=== PATIENT | male | born 1955 | race African-American/Black ===

== ENCOUNTER → 2017-02-10 | Outpatient (CLI) | payer OTHER ==
--- NOTE | 2017-02-10 15:47 | RAD ---
Ultrasound venous Doppler Indication:RT LEG PAIN Technique: Grayscale, color Doppler and spectral waveform ultrasound images of the right lower extremity deep veins. Comparison: None Findings: The interrogated lower extremity veins are compressible and demonstrate evidence of blood flow with normal respiratory variation and response to augmentation. Impression: No sonographic evidence of acute DVT of the interrogated right lower extremity deep veins.
== END | disposition home or self-care (01) ==
LOC: US 10:49
PROVIDERS: ATTEND Family Medicine
DX: M79.604 Pain in right leg (principal)
CPT/HCPCS: 93971

== ENCOUNTER → 2018-11-24 | Outpatient (CLI) | payer MEDICAID ==
--- NOTE | 2018-11-24 12:20 | RAD ---
Bilateral lower extremity arterial ultrasound History: Claudication, smoker for many years, pain for over a year Findings: Multiple grayscale, color, and duplex spectral analysis sonographic images were acquired of the lower extremity arteries bilaterally. There are no previous similar exams. Proximal through mid right superficial femoral artery is not visualized. Left anterior tibial and dorsalis pedis arteries are not visualized. There is diffuse plaque bilaterally, also some areas of collateral vessels. There is increased velocity of the right profunda femoris artery, also increasing velocity between the proximal and mid left superficial femoral artery. There are monophasic waveforms on the right of the distal right superficial femoral artery and beyond, also of the left of the left calf vessels. Velocities in cm/sec: RIGHT Common femoral artery 100 Profunda femoris artery 303 Proximal SFA not seen Mid SFA not seen Distal SFA 32 Popliteal artery 21 Posterior tibial artery 30 proximally and 31 distally Peroneal artery 25 Anterior tibial artery 23 Dorsalis pedis artery 74 LEFT: Common femoral artery 91 Profunda femoris artery 129 Proximal SFA 62 Mid SFA 193 Distal SFA 81 Popliteal artery 76 Posterior tibial artery 66 proximally and 83 distally Peroneal artery 51 Anterior tibial artery not seen Dorsalis pedis artery not seen Impression: 1. There is segmental occlusion of the proximal and mid right superficial femoral artery, also apparently occluded left anterior tibial and dorsalis pedis arteries. There are monophasic waveforms on the right of the distal right superficial femoral artery and beyond, also of the left of the left calf vessels. 2. There is stenosis between the proximal and mid left superficial femoral artery. There is stenosis of the proximal right profunda femoris artery. Ankle brachial indices: Right JOHN was 0.4, left 0.98 IMPRESSION: 1. Right JOHN corresponds with severe arterial disease. Left JOHN is considered within normal limits. Electronically signed by: Cirilo Robertson MD (11/24/2018 12:17 PM) [id number]
== END | disposition home or self-care (01) ==
LOC: US 07:15
PROVIDERS: ATTEND Family Medicine
DX: I70.203 Unspecified atherosclerosis of native arteries of extremities, bilateral legs (principal); I77.1 Stricture of artery; F17.200 Nicotine dependence, unspecified, uncomplicated
CPT/HCPCS: 93922; 93925

== ENCOUNTER 2019-01-23 07:04 | Observation (INO) | payer MEDICAID ==
[2019-01-23] VITALS (15 sets, daily range): BP systolic 113–187; BP diastolic 54–95
[~2019-01-23] VITALS: Ht 182.9 cm; Wt 84.9 kg
--- NOTE | 2019-01-23 03:05 | NUR ---
PT REFUSED 3AM VS, WILL CONT TO MONITOR PT SAFETY AND STATUS. PMRN
[2019-01-23] MEDS ORDERED: METO50TA6 PO (07:32)
[2019-01-23] MEDS ORDERED: PHEN1PAC6 PO (07:32)
[2019-01-23] MEDS ORDERED: ASPI81TA50 PO (07:32)
[2019-01-23] MEDS ORDERED: ATOR20TA58 PO (07:32)
[2019-01-23 07:39] LABS: HEMATOCRIT 35.7 % (39.0-53.0); HEMOGLOBIN 12.1 g/dL (13.0-17.5); RED BLOOD COUNT 3.92 x10^6/uL (4.30-5.70); RED CELL DISTRIBUTION WIDTH 14.5 % (11.5-14.5); WHITE BLOOD COUNT 6.1 x10^3/uL (4.0-11.0)
[2019-01-23] MEDS ORDERED: LIDOCAINE 1% Multi-Dose 20 ML VIAL. ONE (07:44)
[2019-01-23] MEDS ORDERED: IODIXANOL 320 MG/ML 100 ML VIAL. ONE (07:44)
[2019-01-23 07:48] LABS: PROTHROMBIN TIME PATIENT 12.8 SEC (11.7-14.0)
[2019-01-23 07:50] LABS: CREATININE 1.3 mg/dL (0.7-1.3); GFR 67.5; POTASSIUM 4.2 mmol/L (3.5-5.1)
[2019-01-23] MEDS ORDERED: fentaNYL PF VIAL 250 MCG/5 ML VIAL ONE (08:17)
[2019-01-23] MEDS ORDERED: HEPARIN for IV BOLUS 10,000 UNIT/10 ML VIAL. ONE (08:17)
[2019-01-23] MEDS ORDERED: MIDAZOLAM HCL/PF 5 MG/5 ML VIAL. ONE (08:17)
[2019-01-23] MEDS ORDERED: LIDOCAINE 1% Multi-Dose 20 ML VIAL. INJ ONE (08:45)
[2019-01-23] MEDS ORDERED: MIDAZOLAM HCL/PF 5 MG/5 ML VIAL. IV ONE (08:45)
[2019-01-23] MEDS ORDERED: fentaNYL PF VIAL 250 MCG/5 ML VIAL IV ONE (08:45)
[2019-01-23] MEDS ORDERED: HEPARIN for IV BOLUS 10,000 UNIT/10 ML VIAL. IV ONE (09:15)
[2019-01-23] MEDS ORDERED: CLOPIDOGREL BISULFATE 75 MG TABLET ONE (10:26)
[2019-01-23] MEDS ORDERED: IODIXANOL 320 MG/ML 100 ML VIAL. IART ONE (10:30)
[2019-01-23] MEDS ORDERED: ASPIRIN 325 MG TABLET PO ONE (10:30)
[2019-01-23] MEDS ORDERED: CLOPIDOGREL BISULFATE 75 MG TABLET PO ONE (10:30)
[2019-01-23] MEDS: IV NORMAL SALINE 1000ML BAG 1,000 ML IV SCH ×2 (10:30→17:52)
[2019-01-23] MEDS ORDERED: IV 1/2 NORMAL SALINE 1,000 ML IV SCH (10:36)
--- NOTE | 2019-01-23 10:36 | PDOC ---
MODERATE SEDATION ASSESSMENT RISKS/ALTERNATIVES Risks/Alternatives Risks and alternatives of this type of sedation and procedure discussed with: RISK/ALTERNATIVES: Patient H & P ON CHART H & P H & P on chart and reviewed for co-morbid conditions and appropriate labs. H&P ON CHART: Yes STATUS PREG STATUS ASSESSED: N/A MEDS/ALLERGIES REVIEWED Meds/Allergies Reviewed Medications and Allergies including time and route of recently administered narcotics and sedatives. MEDS/ALLERGIES REVIEWED: Yes ASA RATING ASA RATING: II AIRWAY ASSESSMENT Airway Assessment Airway patency, oral function limitations, presence of caps, crowns, dentures, partials, and ability to extend neck assessed. AIRWAY ASSESSMENT: Yes MALLAMPATI SCORE MALLAMPATI SCORE: II PRE-SEDATION ASSESSMENT PRE-SEDATION ASSESSMENT: Yes OLEG MATA MD Jan 23, 2019 10:36
[2019-01-23] MEDS ORDERED: MAGNESIUM HYDROXIDE 2,400 MG/30 ML ORAL.SUSP. PO PRN (10:45)
[2019-01-23] MEDS ORDERED: ACETAMINOPHEN 325 MG TABLET. PO PRN (10:45)
[2019-01-23] MEDS ORDERED: ATROPINE 0.5 MG/5 ML DISP.SYRINGE. IV PRN (10:45)
[2019-01-23] MEDS ORDERED: BISACODYL 10 MG SUPP.RECT. PR PRN (10:45)
[2019-01-23] MEDS ORDERED: LACTULOSE 20 GM/30 ML SOLUTION. PO PRN (10:45)
[2019-01-23] MEDS ORDERED: fentaNYL PF VIAL 100 MCG/2 ML VIAL IV ONE (10:45)
[2019-01-23] MEDS ORDERED: NITROGLYCERIN SUBLINGUAL 0.4 MG BOTTLE OF 25. SL PRN (10:45)
--- NOTE | 2019-01-23 11:05 | CARD ---
MR#: [id number] Date of Study: 01/23/2019 Ordering Physician: OLEG MATA, Referring Physician: OLEG MATA Tech: LOVE BARBER RTR APPROVED REPORT Patient StatusOUT-PATIENT Airport Tower Controller: LOVE BARBER RTR Procedure(s) performed: 1. Aortogram with bilateral lower extremity runoff 2. Successful RETAIL ANALYST/stent placement to left external iliac artery and attempted RETAIL ANALYST to right superfici al femoral artery MODERATE SEDATION TIME:145 MIN FLUORO TIME: 37.5 MIN DOSE: 90.9 GYCM2 CONTRAST: 136 INDICATION FOR PROCEDURE The indication(s) include : Peripheral artery disease with claudication. PROCEDURE NARRATIVE After explaining the risks, benefits and alternative options, informed consent was obtained from melvin ent. Patient was brought to the cardiac Grocery Supervisor and his left groin was prepped and draped in the usu al fashion. 20 mL of 2% lidocaine was infiltrated into the skin and subcutaneous tissues for local an esthesia. Arterial access was obtained in the left common femoral artery and a 6 Chinese sheath was in serted. 5 Chinese pigtail catheter was used to perform aortogram with bilateral lower extremity runoff . The following findings were noted. FINDINGS 1. No significant stenosis involving the distal descending aorta 2. No significant stenosis involving bilateral common iliac arteries 3. No significant stenosis involving right external iliac artery. The left external iliac artery sachin wed 80% calcified stenosis. 4. No significant stenosis involving bilateral common femoral arteries. 5. The right superficial femoral artery showed a long 100% chronic total occlusion involving the pro ximal, mid and mid to distal segments with distal reconstitution from collaterals. The left superfici al femoral artery showed 60% stenosis involving the proximal to midsegment and 70-80% stenosis involv ing the distal segment. 6. No significant stenosis involving bilateral popliteal arteries. 7. Below the knee vessels were not well visualized but there appears to be two-vessel runoff involvi ng posterior tibial and peroneal arteries. The anterior tibial arteries showed chronic total occlusio ns proximally bilaterally. INTERVENTION The sheath in the left groin was exchanged to a 6 Chinese bright tip sheath. The stenosis in the left external iliac artery was crossed with a 0.035 inch Glidewire. This was predilated with a 6 x 0 x 40 mm metacross balloon following which this was successfully treated with 8.0 x 29 mm Omnilink elite ba lloon expandable stent. This was then postdilated with a 9 x 20 mm Santos [place] balloon. Follow-up a ngiography showed resolution of the lesion with good distal flow. Subsequently, the sheath was exchanged to a 6 Chinese 45 cm destination sheath that was advanced over the aortic jerry with the help of a crossover catheter. The tip was positioned in the right common f emoral artery. Several attempts were then made to cross the chronic total occlusion involving the ri t superficial femoral artery initially with 0.[address] guidewire with backup support fro m 4 Chinese angled Debord catheter followed by Quickcross microcatheter. Attempts were also made to crown buffer ss this lesion with a 0.035 inch Glidewire again with backup support from the glide catheter but were unsuccessful due to the long and chronic nature of the occlusion. Further attempts were abandoned wi th plans for intervening of the right SFA via right pedal access. Left common femoral angiography prior to closure showed that the left external iliac artery stent had migrated probably because of pressure from the sheath. This was postdilated again with the 9.0 x 20 mm balloon. The distal segment of the left external iliac artery was then treated with a 2.0 x 80 mm absolute Pro self-expanding stent. Follow-up angiorrhaphy showed resolution of the lesion to 0% with good distal flow. Patient part of the procedure well. Hemostasis was achieved using manual compressio n. There were no immediate complications. Conclusion 1. Severe bilateral lower eczema deep peripheral artery disease as described above 2. Successful RETAIL ANALYST/stent placement to left external iliac artery and attempted RETAIL ANALYST to the right superf icial femoral artery Recommendations Plan for RETAIL ANALYST to the right superficial femoral artery via right posterior tibial access in 2 weeks. We will also consider RETAIL ANALYST to the left SFA at the same time possibly via radial access. Vascular risk factor modification and regular exercise regimen. Signed by : Oleg Mata, Electronically Approved : 01/23/2019 11:04:20
[2019-01-23] MEDS ORDERED: ATORVASTATIN CALCIUM 20 MG TABLET PO SCH (21:00)
[2019-01-23] MEDS: METOPROLOL TART IMMED RELEASE 50 MG TABLET. PO SCH (21:09)
[2019-01-24] MEDS: IV NORMAL SALINE 1000ML BAG 1,000 ML IV SCH (06:33)
[2019-01-24 07:00] VITALS: BP 154/69
[2019-01-24] MEDS ORDERED: CLOPIDOGREL BISULFATE 75 MG TABLET PO SCH (08:00)
[2019-01-24] MEDS ORDERED: ASPIRIN ENTERIC COATED 81 MG TABLET.DR. PO SCH (08:00)
[2019-01-24] MEDS: METOPROLOL TART IMMED RELEASE 50 MG TABLET. PO SCH (08:57)
--- NOTE | 2019-01-24 09:26 | PDOC3 ---
LIGIA ESPINAL LAND DEGRADATION ANALYST 01/24/19 0926: Discharge Summary Visit Information Date of Admission: Jan 23, 2019 Date of Discharge: Jan 24, 2019 Admitting Diagnosis: HTN, Severe PAD wit claudications Final Diagnosis HTN, S/P PROCEDURE RN/stent to left external iliac artery, Severe RLE PAD with attempted PROCEDURE RN Brief Hospital Course Allergies Allergies Coded Allergies Type Severity Reaction Last Updated Verified No Known Drug Allergies 01/23/19 No Vital Signs Vital Signs Date Time Temp Pulse Resp B/P (MAP) Pulse Ox O2 Delivery O2 Flow Rate FiO2 01/24/19 08:57 69 154/69 01/24/19 07:00 98.2 16 98 Room Air 98.2 01/23/19 08:45 2.0 Lab Results Laboratory Tests Test 01/23/19 07:32 01/23/19 10:17 White Blood Count 6.1 x10^3/uL (4.0-11.0) Red Blood Count 3.92 x10^6/uL (4.30-5.70) Hemoglobin 12.1 g/dL (13.0-17.5) Hematocrit 35.7 % (39.0-53.0) Mean Corpuscular Volume 91 fL (79-100) Mean Corpuscular Hemoglobin 31 pg (25-35) Mean Corpuscular Hemoglobin Concent 34 g/dL (31-37) Red Cell Distribution Width 14.5 % (11.5-14.5) Platelet Count 245 x10^3/uL (140-400) Prothrombin Time 12.8 SEC (11.7-14.0) Prothromb Time International Ratio 1.0 (0.8-1.1) Sodium Level 141 mmol/L (136-145) Potassium Level 4.2 mmol/L (3.5-5.1) Chloride Level 106 mmol/L (98-107) Carbon Dioxide Level 28 mmol/L (21-32) Anion Gap 7 (6-14) Blood Urea Nitrogen 18 mg/dL (8-26) Creatinine 1.3 mg/dL (0.7-1.3) Estimated GFR (Cockcroft-Gault) 67.5 Glucose Level 104 mg/dL (70-99) Calcium Level 9.0 mg/dL (8.5-10.1) Activated Clotting Time 126 sec (92-181) Laboratory Tests Test 01/23/19 10:17 Activated Clotting Time 126 sec (92-181) Brief Hospital Course Mr. Mar is a 63 yo male admitted for planned femoral runoff with percutaneous revascularization due to severe PAD and claudications. He hasbeen noted with severe bilateral PAD and had a successful PROCEDURE RN/stent placement to left external iliac artery and also attempted PROCEDURE RN to the right superficial femoral artery. Having said that, will plan for PROCEDURE RN to the right superficial femoral artery via right posterior tibial access in 2 weeks. Left groin arteriotomy site intact. no erythema, no swelling and neurovascular status to bilateral LE intact. Pt is able to ambulate and no significant pain. He is AOx3, VSS. Denies any chest pain or SOA. Plavix RX given in addition to ASA and to continue secondary prevention. Will develop further exercise regimen once his RSFA is fixed. Discussed lifestyle modification including smoking cessation. Continue home regimen. Post cath instructions provided. Assessment Assessment Discharge Information Condition at Discharge: Stable Follow Up: Weeks (4) Disposition/Orders: D/C to Home Scheduled Aspirin (Aspir-Low) 81 Mg Tablet.dr, 1 TAB PO DAILY for heart health, #30 Ref 3 (Reported) Entered as Reported by: ANGELO CANO on 01/23/19731 Last Taken: Unknown Dose on 01/22/19 Last Action: New Order on 01/23/19731 by ANGELO CANO Atorvastatin Calcium (Atorvastatin Calcium) 20 Mg Tablet, 1 TAB PO DAILY for cholesterol, #30 Ref 5 (Reported) Entered as Reported by: ANGELO CANO on 01/23/19731 Last Taken: Unknown Dose on 01/23/19 Last Action: Continued on 01/23/191642 by JUAN RAMON STATON Clopidogrel Bisulfate (Clopidogrel) 75 Mg Tablet, 75 MG PO DAILYWBKFT for PVD for 30 Days, #30 Ref 3 Prescribed by: LIGIA ESPINAL on 01/24/19927 Metoprolol Tartrate (Metoprolol Tartrate) 50 Mg Tablet, 1 TAB PO BID for heart health, #60 Ref 5 (Reported) Entered as Reported by: ANGELO CANO on 01/23/19731 Last Taken: Unknown Dose on 01/23/19 Last Action: Continued on 01/23/191642 by JUAN RAMON STATON Phenylephrine/Acetaminophn/Pnm (Theraflu Flu & Sore Throat) 1 Each Packet, 1 EACH PO 1X for bodyaches, (Reported) Entered as Reported by: ANGELO CANO on 01/23/19731 Last Taken: Unknown Dose on 01/23/190 Last Action: New Order on 01/23/19731 by ANGELO CANO Patient Instructions Patient Instructions GENERAL INSTRUCTIONS: 1. Your dressing should be removed prior to leaving the hospital. 2. It is OK to shower the day after your procedure. 3. If you received stents, be sure to carry your stent information card with you in your wallet/purse at all times. 4. Call the office immediately at [phone] if you notice any fever or if there is redness, worsening tenderness/pain, increased bruising, or drainage from the puncture site. 5. Should you have bleeding from the site, lie down immediately & put pressure on the site. The pressure should be hard enough to stop the bleeding. Have the nearest person call 911. DO NOT try to drive to the ER with active bleeding. 6. If you notice a change in color, coolness to touch, or loss of feeling in the affected extremity, come to the emergency room. Please have someone drive you or call 911 if no one is available. DO NOT drive yourself. 7. If you normally take glucophage (metformin), please do not take this medicine for 48 hours following your procedure. 8. DO NOT STOP TAKING YOUR PLAVIX OR ASPIRIN UNLESS IT IS CLEARED BY A INSURANCE VERIFICATION SPECIALIST OF YOUR ENERGY RATER AT OUR OFFICE. 9. QUIT SMOKING: the [place] [employer], [place] [employer], & [place] [employer] have cessation resources available on their websites 10. Please have someone available to drive you home from the hospital as you may be limited by sedation medications given during the procedure. Femoral (Groin) access: 1. Do no lifting, pushing, pulling, bending, stooping, or recurrent stair climbing for 3 days following your procedure. 2. Once past the first 3 days, do not do any HEAVY exertion or lifting for one week following the procedure. No gym workouts, running, lifting greater than a gallon of milk, etc 3. Do not submerge in bath or pool for one week. OK to drive 3 days following your procedure, but if going long distance, do not go alone & take hourly breaks to get out of car and walk around. Call the office at [phone] for any questions or concerns. OLEG MATA MD 01/25/19 0822: Discharge Summary Brief Hospital Course Brief Hospital Course Patient seen and examined 01/24/19. Agree with LEVEE SUPERINTENDENT's assessment and plan. PAD s/p PROCEDURE RN/stent to left EIA yesterday Arteriotomy site looks good Continue Plavix and regular exercise regimen Plan for PROCEDURE RN to right SFA via pedal access in 2 weeks LIGIA ESPINAL APRN Jan 24, 2019 09:26 OLEG MATA MD Jan 25, 2019 08:22
[2019-01-24] MEDS ORDERED: CLOP75TA PO (09:28)
[2019-01-24 11:00] VITALS: BP 147/66
--- NOTE | 2019-01-24 18:41 | NUR ---
Discharge Note: EMILEE RIVERA Discharge instructions and discharge home medications reviewed with Patient and a copy given. All questions have been answered and understanding verbalized. The following instructions and handouts were given: PVD, Post cath, and smoking cessation. Discontinued iv lines and catheter intact. Dressing to Left groin removed and transparent dressing applied. Patient discharged to home with self-care via private vehicle.
== END 2019-01-24 13:31 | disposition home or self-care (01) ==
LOC: CCL 07:04 → 2 SOUTH 10:36
PROVIDERS: ADMIT Internal Medicine Cardiovascular Disease; ATTEND Internal Medicine Cardiovascular Disease
DX: I73.9 Peripheral vascular disease, unspecified (principal); I10 Essential (primary) hypertension; E78.5 Hyperlipidemia, unspecified; F17.200 Nicotine dependence, unspecified, uncomplicated; H40.9 Unspecified glaucoma; F41.9 Anxiety disorder, unspecified; Z85.46 Personal history of malignant neoplasm of prostate
CPT/HCPCS: 36415; 37221; 75630; 80048; 85027; 85347; 85610; 96374; 96375; C1713; C1725; C1769; C1876; C1892; C1894; G0378; G0379; J1644; J2250; J3010; J7030; Q9967; 99152; 99153

== ENCOUNTER → 2019-01-30 | Outpatient (CLI) | payer MEDICAID ==
[2019-01-24 11:00] VITALS: BP 147/66
[~2019-01-30] MED LIST: ASPI81TA50 PO; ATOR20TA58 PO; CLOP75TA PO; METO50TA6 PO; PHEN1PAC6 PO; REGADENOSON 0.4 MG/5 ML DISP.SYRIN. IV ONE
--- NOTE | 2019-01-30 09:17 | CARD ---
MR#: [id number] Date of Study: 01/30/2019 Ordering Physician: OLEG MATA, Referring Physician: Vlad RONQUILLO: Johanna Fong APPROVED REPORT EXAM: Two-dimensional and M-mode echocardiogram with Doppler and color Doppler. Other Information Quality : AverageHR: 76bpm INDICATION Hypertension/HCVD 2D DIMENSIONS RVDd2.0 (2.9-3.5cm)Left Atrium(2D)3.2 (1.6-4.0cm) IVSd1.1 (0.7-1.1cm)Aortic Root(2D)2.6 (2.0-3.7cm) LVDd5.4 (3.9-5.9cm)LVOT Diameter2.2 (1.8-2.4cm) PWd1.0 (0.7-1.1cm)LVDs4.1 (2.5-4.0cm) FS (%) 24.7 %SV69.9 ml LVEF(%)48.5 (>50%) Aortic Valve AoV Peak Alex.113.8cm/sAoV VTI19.7cm AO Peak GR.5.2mmHgLVOT Peak Alex.72.7cm/s AO Mean GR.3mmHgAVA (VMAX)2.37cm2 Mitral Valve MV E Ycepziuj77.1cm/sMV E Peak Gr.2mmHg MV DECEL [id number] A Vkbqmbkj11.7cm/s MV E Mean Gr.1mmHgE/A Ratio0.5 Pulmonary Valve PV Peak Cqznvnlf45.0cm/s Tricuspid Valve TR P. Oiyfvyim742nd/sRAP HHCKLRFO8plDs TR Peak Gr.83dvOiXAMQ39rkHu Pulmonary Vein S1 Moemibcb66.3cm/sD2 Xgohoxfo03.0cm/s LEFT VENTRICLE The left ventricle is normal size. There is normal left ventricular wall thickness. The systolic func tion is moderately to severely impaired. EF 30-35% Septal motion suggestive of conduction defect. Tis steve Doppler imaging reveals moderate left ventricular diastolic dysfunction. RIGHT VENTRICLE The right ventricle cavity is small. There is normal right ventricular wall thickness. The right vent ricular systolic function is normal. ATRIA The left atrium size is normal. The right atrium size is normal. The interatrial septum is borderline aneurysmal, bowing to the left. AORTIC VALVE The aortic valve is mildly thickened but opens well. Doppler and Color Flow revealed no significant a ortic regurgitation. There is no significant aortic valvular stenosis. MITRAL VALVE The mitral valve is thickened but opens well. There is no evidence of mitral valve prolapse. There is no mitral valve stenosis. Doppler and Color-flow revealed trace mitral regurgitation. TRICUSPID VALVE The tricuspid valve is normal in structure and function. Doppler and Color Flow revealed mild tricusp id regurgitation with an estimated PAP of 23 mmHg. There is no tricuspid valve stenosis. PULMONIC VALVE The pulmonic valve is not well visualized. Doppler and Color Flow revealed trace to mild pulmonic sanjiv vular regurgitation. There is no pulmonic valvular stenosis. GREAT VESSELS The aortic root is normal in size. The ascending aorta is Mildly dilated at 3.7 cm. The IVC is normal in size and collapses >50% with inspiration. PERICARDIAL EFFUSION There is no pleural effusion. There is no evidence of significant pericardial effusion. Critical Notification Critical Value: No <Conclusion> The systolic function is moderately to severely impaired. EF 30-35% Septal motion suggestive of conduction defect. The ascending aorta is Mildly dilated at 3.7 cm. Signed by : Lefty Dugan, Electronically Approved : 01/30/2019 09:16:27
--- NOTE | 2019-01-30 13:20 | RAD ---
MR#: [id number] Date of Study: 01/30/2019 Ordering Physician: OLEG MATA Referring Physician: MOISÉS RONQUILLO Tech: HUNTER Will APPROVED REPORT Test Type: Pharmacological Stress Nurse/Tech: Sandra Robert RN Test Indications: PAD Cardiac History: Hypertension,smoker Medications: See Electronic Medical Record Medical History: See Electronic Medical Record Resting ECG: SR Resting Heart Rate: 61 bpm Resting Blood Pressure: 143/66mmHg Pretest Chest Pain: No chest pain Nurse/Tech Notes S1,S2 and lungs slightly diminished in the bases. Patient's EKG shows ST depression in multiple lead s as baseline. Consent: The procedure was explained to the patient in lay terms. Informed consent was witnessed. Brian eout was entered into [email or web address]. History and Stress Test performed by HUNTER Will Pharm. Details Pharmacologic stress testing was performed using 0.4mg per 5ml of regadenoson given intravenously ove r 7-10 seconds. Stress Symptoms No chest pain or symptoms. POST EXERCISE Reason for Termination: Infusion complete Target HR: No Max HR: 101 bpm 75% of Maximum Predicted HR: 133 bpm Max Blood Pressure: 141/77mmHg Blood Pressure response to exercise: Normal blood pressure response during stress. Heart Rate response to exercise: WNL Chest Pain: No. Arrhythmia: No. ST Change: No. INTERPRETATION Stress EKG Conclusion: Baseline EKG showed sinus rhythm with inferolateral T wave inversions. Non-di agnostic changes at peak stress. No arrhythmias. Imaging Protocol IMAGE PROTOCOL: Rest Tc-99m/stress Tc-99m 1 day Rest: Stress: Viability: Radiopharm.Tc99m DuzsgzygdRs70x Sestamibi Wwvr47jNi 33mCi Duration 15min. 10min. Img Date 01/30/2019 01/30/2019 Inj-Img Wcne16hdd. 60min. Rest Admin Site:IV - Left ForearmAdministrator:ERIKA Lopez, ARRT (R)(N) Stress Admin Site: IV - Left ForearmAdministrator: ERIKA Lopez, ARRT (R)(N) STRESS DATA End Diast. Vol.162.0mlAv. Heart Rate79.0bpm End Syst. Vol.95.0mlCO Index BSA0.0L/min Myocardial Fmip135.0gEject. Atymwszt38.0% Stress Rates Pk. Fill Rate1.33EDV/secLVtime Pk. Fill 85.31msec Pk. Empty Rate2.57ESV/secLVtime Pk. Vxtwy997.11msec /3 Pk. Fill0.91EDV/sec Stress Scores Regional WT2.00Summed WT27.00 Regional WM2.00Summed WM25.00 LV Perfusion Scintigraphic images showed small to moderate reversible defect involving the anterolateral wall cons istent with ischemia. Wall Motion Mild left ventricle systolic dysfunction with ejection fraction calculated at 41%. LV Perf. Quant 17 Seg. SSS8.00 17 Seg. SRS4.00 17 Seg. SDS4.00 Stress Defect Extent (% LAD)1.90Rest Defect Extent (% LAD)0.00Rev. Defect Extent (% LAD)1.90 Stress Defect Extent (% LCX) 58.80Rest Defect Extent (% LCX)41.30Rev. Defect Extent (% LCX)35.00 Stress Defect Extent (% RCA)0.00Rest Defect Extent (% RCA)0.00Rev. Defect Extent (% RCA)0.00 Stress Defect Extent (% KRUNAL)15.20Rest Defect Extent (% KRUNAL)8.50Rev. Defect Extent (% KRUNAL)10.70 Conclusion 1. Regadenoson cardioisotope stress test showed jbuce-cf-pwwrdaci amount of anterolateral wall ischem ia. 2. Mild left ventricle systolic dysfunction with ejection fraction catheter at 41%. 3. Intermediate risk for cardiac events. Signed by : Oleg Mata, Electronically Approved : 01/30/2019 13:19:48
== END | disposition home or self-care (01) ==
LOC: ECHO 07:34
PROVIDERS: ATTEND Internal Medicine Cardiovascular Disease
DX: I08.8 Other rheumatic multiple valve diseases (principal); I25.89 Other forms of chronic ischemic heart disease; I10 Essential (primary) hypertension; F17.200 Nicotine dependence, unspecified, uncomplicated; I73.9 Peripheral vascular disease, unspecified
CPT/HCPCS: 78452; 93017; 93306; A9500; J2785

== ENCOUNTER 2019-02-07 07:38 | Observation (INO) | payer MEDICAID ==
[~2019-02-07] VITALS: Ht 182.9 cm; Wt 81.2 kg
[~2019-02-07 07:38] MED LIST changes: -REGADENOSON 0.4 MG/5 ML DISP.SYRIN. IV ONE
[2019-02-07] MEDS ORDERED: IODIXANOL 320 MG/ML 100 ML VIAL. ONE (07:40)
[2019-02-07] MEDS ORDERED: LIDOCAINE 1% Multi-Dose 20 ML VIAL. ONE (07:40)
[2019-02-07] MEDS ORDERED: MIDAZOLAM HCL/PF 5 MG/5 ML VIAL. ONE (08:13)
[2019-02-07] MEDS ORDERED: HEPARIN for IV BOLUS 10,000 UNIT/10 ML VIAL. ONE (08:13)
[2019-02-07] MEDS ORDERED: fentaNYL PF VIAL 250 MCG/5 ML VIAL ONE (08:13)
[2019-02-07 08:26] LABS: HEMATOCRIT 39.4 % (39.0-53.0); HEMOGLOBIN 13.3 g/dL (13.0-17.5); RED BLOOD COUNT 4.34 x10^6/uL (4.30-5.70); RED CELL DISTRIBUTION WIDTH 14.4 % (11.5-14.5); WHITE BLOOD COUNT 5.7 x10^3/uL (4.0-11.0)
[2019-02-07 08:28] VITALS: BP 131/59
[2019-02-07 08:31] LABS: CALCIUM 9.6 mg/dL (8.5-10.1); CREATININE 1.2 mg/dL (0.7-1.3); POTASSIUM 4.4 mmol/L (3.5-5.1)
[2019-02-07] MEDS ORDERED: NITROGLYCERIN 200 MCG/2 ML SYRINGE FOR CATH/VASC LAB. ONE (08:31)
[2019-02-07] MEDS ORDERED: VERAPAMIL 5 MG/2 ML VIAL. ONE (08:31)
[2019-02-07 08:41] LABS: PROTHROMBIN TIME PATIENT 12.7 SEC (11.7-14.0)
[2019-02-07] MEDS ORDERED: VERAPAMIL 5 MG/2 ML VIAL. IART ONE (09:30)
[2019-02-07] MEDS ORDERED: fentaNYL PF VIAL 250 MCG/5 ML VIAL IV ONE (09:30)
[2019-02-07] MEDS ORDERED: IODIXANOL 320 MG/ML 100 ML VIAL. IART ONE (09:30)
[2019-02-07] MEDS ORDERED: LIDOCAINE 1% Multi-Dose 20 ML VIAL. INJ ONE (09:30)
[2019-02-07] MEDS ORDERED: NITROGLYCERIN 200 MCG/2 ML SYRINGE FOR CATH/VASC LAB. IART ONE (09:30)
[2019-02-07] MEDS ORDERED: MIDAZOLAM HCL/PF 5 MG/5 ML VIAL. IV ONE (09:30)
[2019-02-07] MEDS ORDERED: HEPARIN for IV BOLUS 10,000 UNIT/10 ML VIAL. IART ONE (09:30)
[2019-02-07] MEDS ORDERED: HEPARIN for IV BOLUS 10,000 UNIT/10 ML VIAL. IV ONE (11:00)
--- NOTE | 2019-02-07 11:19 | NUR ---
SS following for discharge planning. SS reviewed pt chart. Pt is from home and is currently on room air. SS will continue to follow for discharge planning.
[2019-02-07 11:37] VITALS: BP 140/65
--- NOTE | 2019-02-07 11:41 | PDOC ---
MODERATE SEDATION ASSESSMENT RISKS/ALTERNATIVES Risks/Alternatives Risks and alternatives of this type of sedation and procedure discussed with: RISK/ALTERNATIVES: Patient H & P ON CHART H & P H & P on chart and reviewed for co-morbid conditions and appropriate labs. H&P ON CHART: Yes STATUS PREG STATUS ASSESSED: N/A MEDS/ALLERGIES REVIEWED Meds/Allergies Reviewed Medications and Allergies including time and route of recently administered narcotics and sedatives. MEDS/ALLERGIES REVIEWED: Yes ASA RATING ASA RATING: III AIRWAY ASSESSMENT Airway Assessment Airway patency, oral function limitations, presence of caps, crowns, dentures, partials, and ability to extend neck assessed. AIRWAY ASSESSMENT: Yes MALLAMPATI SCORE MALLAMPATI SCORE: II PRE-SEDATION ASSESSMENT PRE-SEDATION ASSESSMENT: Yes OLEG MATA MD Feb 07, 2019 11:41
[2019-02-07] MEDS ORDERED: ACETAMINOPHEN 325 MG TABLET. PO PRN (11:45)
[2019-02-07] MEDS ORDERED: fentaNYL PF VIAL 100 MCG/2 ML VIAL IV ONE (11:45)
--- NOTE | 2019-02-07 12:01 | CARD ---
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 PROCEDURE NARRATIVE After explaining the risks, benefits and alternative options, informed consent was obtained from melvin ent. Patient was brought to the cardiac Furnace Tender and his left wrist and right foot they prepped and d raped in the usual fashion. Arterial access was obtained in the left radial artery and 6 [place] sheat h was inserted. Arterial access was then obtained in the right posterior tibial artery under vascular ultrasound guidance and 6 [place] sheath was inserted. A 6 [place] PV Multi catheter was advanced to t he radial artery sheath and the tip was positioned in the right common femoral artery. Contrast injec tions confirmed the previously described 100% chronic total occlusion involving the right superficial femoral artery. Several attempts were then made to cross the long calcified chronic total occlusion of right SFA by a dvancing 0.014 inch command ES followed by 0.[address] with backup support from Quick cross microcatheter via right posterior tibial artery. Attempts were then made using 0.035 inch angled Gl idewire with backup support from navicross and 4 [place] angled glide catheters. The wires kept going into the subintimal layer all the way into the right common femoral artery. Attempts at reentering in to the true lumen using Astato guidewire were unsuccessful. Aggressive measures were also employed us ing the back end of Glidewire followed by 0.018 inch Glidewire advantage but were again unsuccessful. Patient tolerated the procedure well. Hemostasis in the left radial artery and right posterior tibia l artery were achieved using TR band. There were no immediate complications. 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
[2019-02-07 12:20] VITALS: BP 130/52
--- NOTE | 2019-02-07 12:20 | NUR ---
pt called environmental services supervisor light, went in to find pt bleeding from left wrist. pt had loosened tr band because he stated it was too tight. Re adjusted band and called engineer geophysical laboratory to come assess. Educated pt on tr band and instructions on post procedure requirements. will continue to monitor
[2019-02-07] MEDS: IV 1/2 NORMAL SALINE 1,000 ML IV SCH (13:26)
[2019-02-07 14:26] VITALS: BP 121/58
[2019-02-07 19:34] VITALS: BP 123/62
[2019-02-07 22:02] VITALS: BP 144/75
[2019-02-08] MEDS: IV 1/2 NORMAL SALINE 1,000 ML IV SCH ×2 (01:58→07:41)
[2019-02-08 03:06] VITALS: BP 128/69
[2019-02-08 06:58] VITALS: BP 153/72
--- NOTE | 2019-02-08 08:02 | NUR ---
Upon shift change patient noted to have all his home medication on the night stand and was taking them. Patient refused to take our medication and reports these are his home meds. He stated he was taking Centrum, Fishoil, Plavix, Toprol, Atorvastatin and baby ASA. Pt had complaints of right arm hurting and swelling noted and fluids stopped. Warm packs given and arm elevated. Pt refuses IV and states he is leaving today.
[2019-02-08 10:58] VITALS: BP 118/52
[2019-02-08] MEDS ORDERED: ATOR20TA58 PO (11:34)
--- NOTE | 2019-02-08 11:35 | DISCH ---
DISCHARGE INSTRUCTIONS Condition on Discharge Condition on Discharge: Stable Activity After Discharge Activity Instructions for Disc: Activity as tolerated, Other, see below Bathing Instructions: Shower-keep dressing dry, No Tub Bath until see Lifting Instructions after Dis: No heavy lifting, No pulling or pushing, Do not lift >10 pounds Exercise Instruction after Dis: Progress as tolerated Driving Instructions after Dis: Do not drive (for 4-5 days ), Other, see below Weight Bearing Status after Di: Other, see below Diet after Discharge Diet after Discharge: Cardiac Diet Texture: Regular Liquid Texture: Thin Liquid Wound Incision Care Wound/Incision Care: Other, see below Checks after Discharge Checks after discharge: Check blood press - daily, Check your Temp as needed Contacting the DRNanci after DC Call your doctor for: If your condition worsens Treatment/Equipment after DC Comment: POST TIBIAL FABIO DEGROOT APRN Feb 08, 2019 11:35
--- NOTE | 2019-02-08 12:47 | PDOC3 ---
Discharge Summary Visit Information Date of Admission: Feb 07, 2019 Date of Discharge: Feb 08, 2019 Admitting Diagnosis: Peripheral artery disease with claudication Final Diagnosis Peripheral artery disease with claudication Hypertension Hyperlipidemia Tobaccoism Brief Hospital Course Allergies Allergies Coded Allergies Type Severity Reaction Last Updated Verified No Known Drug Allergies 01/23/19 No Vital Signs Vital Signs Date Time Temp Pulse Resp B/P (MAP) Pulse Ox O2 Delivery O2 Flow Rate FiO2 02/08/19 10:58 98.4 60 16 118/52 (74) 97 Room Air 98.4 02/07/19 11:37 2.0 Lab Results Laboratory Tests Test 02/07/19 08:13 White Blood Count 5.7 x10^3/uL (4.0-11.0) Red Blood Count 4.34 x10^6/uL (4.30-5.70) Hemoglobin 13.3 g/dL (13.0-17.5) Hematocrit 39.4 % (39.0-53.0) Mean Corpuscular Volume 91 fL (79-100) Mean Corpuscular Hemoglobin 31 pg (25-35) Mean Corpuscular Hemoglobin Concent 34 g/dL (31-37) Red Cell Distribution Width 14.4 % (11.5-14.5) Platelet Count 351 x10^3/uL (140-400) Prothrombin Time 12.7 SEC (11.7-14.0) Prothromb Time International Ratio 1.0 (0.8-1.1) Sodium Level 142 mmol/L (136-145) Potassium Level 4.4 mmol/L (3.5-5.1) Chloride Level 105 mmol/L (98-107) Carbon Dioxide Level 29 mmol/L (21-32) Anion Gap 8 (6-14) Blood Urea Nitrogen 9 mg/dL (8-26) Creatinine 1.2 mg/dL (0.7-1.3) Estimated GFR (Cockcroft-Gault) 74.0 Glucose Level 100 mg/dL (70-99) Calcium Level 9.6 mg/dL (8.5-10.1) Brief Hospital Course Mr. Mar is a 63 old male who presented with secondary to bilateral lower extremity pain. Worse with the right leg with exertion. No wounds or critical limb ischemia present. Arterial duplex showed occlusion of the right SFA and significant stenosis involving the left SFA. Patient underwent aortogram with runnoff. EVENT SPECIALIST to chronic total occlusion of right SFA was attempted, but unsuccessful. Patient tolerated procedure well and was monitored overnight without complications. Lung CTA. Bilateral neurovascualr status intact. Will referral to vascular surgery on an outpatient basis for possible surgical revascularization. Tobacco cessation was discussed and encouraged. Patient seen and examined. Agree with BOX ORDER PERSON's assessment and plan. EVENT SPECIALIST to right SFA was attempted yesterday via right posterior tibial artery and left radial artery accesses but was unsuccessful due to long and chronic nature of the occlusion. We will consider vascular surgery referral as an outpatient. Follow-up with our office as scheduled. Discharge Information Condition at Discharge: Stable Follow Up: Weeks (4 weeks as scheduled ) Disposition/Orders: D/C to Home Scheduled Aspirin (Aspir-Low) 81 Mg Tablet., 1 TAB PO DAILY for heart health, #30 Ref 3 (Reported) Entered as Reported by: ANGELO CNAO on 01/23/19731 Last Taken: Unknown Dose on 02/07/19 Last Action: Last Taken Edited on 02/07/19800 by ANGELO CANO Atorvastatin Calcium (Atorvastatin Calcium) 20 Mg Tablet, 2 TAB PO DAILY for cholesterol for 30 Days, #60 Ref 5 Prescribed by: FABIO DEGROOT APRN on 02/08/19 1134 Clopidogrel Bisulfate (Clopidogrel) 75 Mg Tablet, 75 MG PO DAILYWBKFT for PVD for 30 Days, #30 Ref 3 Prescribed by: LIGIA ESPINAL on 01/24/19927 Last Taken: Unknown Dose on 02/07/19 Last Action: Last Taken Edited on 02/07/19800 by ANGELO CANO Metoprolol Tartrate (Metoprolol Tartrate) 50 Mg Tablet, 1 TAB PO BID for heart health, #60 Ref 5 (Reported) Entered as Reported by: ANGELO CANO on 01/23/19731 Last Taken: Unknown Dose on 02/07/19 Last Action: Last Taken Edited on 02/07/19800 by ANGELO CANO Patient Instructions Patient Instructions GENERAL INSTRUCTIONS: 1. Your dressing should be removed prior to leaving the hospital. 2. It is OK to shower the day after your procedure. 3. If you received stents, be sure to carry your stent information card with you in your wallet/purse at all times. 4. Call the office immediately at [phone] if you notice any fever or if there is redness, worsening tenderness/pain, increased bruising, or drainage from the puncture site. 5. Should you have bleeding from the site, lie down immediately & put pressure on the site. The pressure should be hard enough to stop the bleeding. Have the nearest person call 911. DO NOT try to drive to the ER with active bleeding. 6. If you notice a change in color, coolness to touch, or loss of feeling in the affected extremity, come to the emergency room. Please have someone drive you or call 911 if no one is available. DO NOT drive yourself. 7. If you normally take glucophage (metformin), please do not take this medicine for 48 hours following your procedure. 8. DO NOT STOP TAKING YOUR PLAVIX OR ASPIRIN UNLESS IT IS CLEARED BY A MARRIAGE AND FAMILY SOCIAL WORKER OF YOUR DENTIST/OWNER AT OUR OFFICE. 9. QUIT SMOKING: the [place] [employer], [place] [employer], & [place] [employer] have cessation resources available on their websites 10. Please have someone available to drive you home from the hospital as you may be limited by sedation medications given during the procedure. Femoral (Groin) access: 1. Do no lifting, pushing, pulling, bending, stooping, or recurrent stair climbing for 3 days following your procedure. 2. Once past the first 3 days, do not do any HEAVY exertion or lifting for one week following the procedure. No gym workouts, running, lifting greater than a gallon of milk, etc 3. Do not submerge in bath or pool for one week. OK to drive 3 days following your procedure, but if going long distance, do not go alone & take hourly breaks to get out of car and walk around. Radial Artery (Wrist) access: 1. No pushing, pulling, lifting, typing, or anything that requires repetitive use/movement of the affected wrist for 3 days following your procedure. 2. OK to drive the day following your procedure. (This is because of effects o f sedating medications.) Call the office at [phone] for any questions or concerns. FABIO DEGROOT APRN Feb 08, 2019 12:47 OLEG MATA MD Feb 08, 2019 13:12
== END 2019-02-08 12:40 | disposition home or self-care (01) ==
LOC: CCL 07:38 → 2 SOUTH 09:52
PROVIDERS: ADMIT Internal Medicine Cardiovascular Disease; ATTEND Internal Medicine Cardiovascular Disease
DX: I73.89 Other specified peripheral vascular diseases (principal); I10 Essential (primary) hypertension; E78.5 Hyperlipidemia, unspecified
CPT/HCPCS: 36415; 37224; 75710; 76937; 80048; 85027; 85610; 96374; 96375; C1713; C1769; C1892; G0378; G0379; J1644; J2250; J3010; J3490; Q9967; 99152; 99153